=== PATIENT | male | born 1990 | race Caucasian/White ===

== ENCOUNTER 2021-09-24 12:08 | Emergency (ER) | payer MEDICAID ==
[~2021-09-24] VITALS: Ht 185.4 cm; Wt 81.8 kg
[2021-09-24 12:24] VITALS: BP 142/89
[2021-09-24] MEDS ORDERED: TETanus/Pertussis (Acell)/Diphther VAC/PF (Tdap-Adult) 0.5ml syringe IMVAC ONE (12:35)
[2021-09-24] MEDS ORDERED: SULF1TAB49 PO (13:52)
== END 2021-09-24 14:00 | disposition home or self-care (01) ==
LOC: ER 12:09
DX: L03.011 Cellulitis of right finger (principal); Z20.3 Contact with and (suspected) exposure to rabies
CPT/HCPCS: 73140; 90471; 90715; 99283